=== PATIENT | female | born 1995 | race African-American/Black ===

== ENCOUNTER → 2016-06-23 | Outpatient (CLI) | payer OTHER ==
[~2016-06-23] MED LIST: ALBUAER INH; AZIT250T PO; VALA1TAB2 PO
== END | disposition home or self-care (01) ==
LOC: C.PAPS 11:38
PROVIDERS: ATTEND Physician Assistant
DX: Z12.4 Encounter for screening for malignant neoplasm of cervix (principal)

== ENCOUNTER → 2016-06-23 | Outpatient (CLI) | payer OTHER ==
[2016-06-25 01:09] LABS: CHLAMYDIA TRACH RNA*** DETECTED (NOT DETECTED); GC (NEIS GONORRHOEAE)RNA** NOT DETECTED (NOT DETECTED)
== END | disposition home or self-care (01) ==
LOC: C.LABSPEC 10:52
PROVIDERS: ATTEND Obstetrics & Gynecology
DX: Z12.4 Encounter for screening for malignant neoplasm of cervix (principal)

== ENCOUNTER → 2016-10-25 | Outpatient (CLI) | payer OTHER ==
[2016-10-27 16:23] LABS: CHLAMYDIA TRACH RNA*** NOT DETECTED (NOT DETECTED); GC (NEIS GONORRHOEAE)RNA** NOT DETECTED (NOT DETECTED)
== END | disposition home or self-care (01) ==
LOC: C.LABSPEC 15:48
PROVIDERS: ATTEND Physician Assistant
DX: A74.9 Chlamydial infection, unspecified (principal)

== ENCOUNTER 2016-11-01 00:49 | Emergency (ER) | payer OTHER ==
[~2016-11-01] VITALS: Ht 165.1 cm; Wt 78.8 kg
[~2016-11-01 00:49] MED LIST changes: -VALA1TAB2 PO
[2016-11-01 00:54] VITALS: TEMP 36.7; Ht 165.1 cm; Wt 78.8 kg
--- NOTE | 2016-11-01 01:13 | EMERGENCY ROOM VISIT NOTE ---
History Report prepared by Scribe: Sindy Mina Under the Supervision of: Dr. Dmitry Orellana D.O. First contact with patient: 01:06 Chief Complaint: OTHER COMPLAINT Stated Complaint: YELLOW BUMP ON TONGUE,PAINFUL,DIFFICULT TO SWALLOW History of Present Illness The patient is a 21 year old female who presents to the Emergency Room with complaints of persistent tongue pain for the past 2 to 3 days. She rates her discomfort as a 5/10. She states there appears to be a yellowish bump on her tongue but denies any lesions on her lips or other parts of her body. 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 Swallowing has become increasingly painful for her, which is why she decided to come to the ED this morning. Source of History: patient Onset: 2 to 3 days [employer] Position: tongue Symptom Intensity: 5/10 Timing: other (persistent) Modifying Factors (Worsening): other (swallowing) Review of Systems See HPI for pertinent positives & negatives. A total of 10 systems reviewed and were otherwise negative. Past Medical & Surgical Medical Problems: (1) No chronic problems Surgical Problems: (1) H/O wisdom tooth extraction Family History Hypertension Kidney disease Social History Smoking Status: Never Smoker Alcohol Use: occasionally Drug Use: none Marital Status: single Housing Status: lives with roommate Occupation Status: [employer] student Current/Historical Medications Scheduled Valacyclovir Hcl (Valtrex), 1,000 MG PO BID Allergies Coded Allergies: No Known Allergies (Unverified , 11/01/16) Physical Exam Vital Signs Date Time Temp Pulse Resp B/P (MAP) Pulse Ox O2 Delivery O2 Flow Rate FiO2 11/01/16 02:34 80 18 115/85 98 11/01/16 00:54 36.7 86 16 126/85 96 Room Air Physical Exam GENERAL: Patient is awake, alert, in no acute distress, patient is resting comfortably and showing no signs of anxiety EYES: The conjunctivae are clear. The pupils are round and reactive. EARS, NOSE, MOUTH AND THROAT: The nose is without any evidence of any deformity. Ulceration noted on the lateral aspect of the right side of the tongue, no significant swelling appreciated. Mucous membranes are moist, tongue is midline NECK: The neck is nontender and supple. RESPIRATORY: Normal respiratory effort is noted there is no evidence of wheezing rhonchi or rales CARDIOVASCULAR: Regular rate and rhythm noted there no murmurs rubs or gallops normal S1 normal S2 GASTROINTESTINAL: The abdomen is soft. Bowel sounds are present in all quadrants. Abdomen is nontender PELVIS: The Pelvis is stable. No tenderness to palpation is noted. BACK: No midline tenderness or or step-off noted range of motion in flexion extension as well as rotation no signs of muscle spasm noted MUSCULOSKELETAL/EXTREMITIES: There is no evidence of gross deformity full range of motion is noted in the hips and shoulders SKIN: There is no obvious evidence of any rash. There are no petechiae, pallor or cyanosis noted. NEUROLOGIC: Patient is awake alert and oriented x3 Medical Decision & Procedures Laboratory Results Test 11/01/16 01:10 Laboratory results per my review. Medications Administered Medications (Trade) Dose Ordered Sig/Marylu Route Start Time Stop Time Status Last Admin Dose Admin Valacyclovir HCl (Valtrex Tab) 1,000 mg NOW ONCE PO 11/01/16 01:30 11/01/16 01:31 DC 11/01/16 01:25 1,000 MG ED Course 0107: The patient was evaluated in room C8. A complete history and physical examination were performed. 0130: Valtrex 1000 mg PO. 0149: I reevaluated the patient. She is feeling better. I discussed her results and discharge instructions and she verbalized complete understanding and agreement. Medical Decision Prior records/ancillary studies reviewed. Triage Nursing notes reviewed. The patient's history was concerning for a rash. Differential diagnosis: Etiologies such as contact dermatitis, viral exanthem, urticaria, allergic reaction, Benson-Randal syndrome, toxic epidermal necrolysis, erythema multiforme, cellulitis, scabies, HSV, varicella, zoster, eczema, staph scalded skin syndrome, fungal infection, as well as others were entertained. The patient is a 21-year-old female who presented to emergency department for an evaluation of a ulceration on the right side of her tongue. This appeared to be consistent with a cold sore. Cultures were obtained and the patient was started on antiviral medications. She was encouraged to follow-up with her primary care physician this week for further evaluation but return to emergency department if symptoms worsen or if need arises. Blood Pressure Screening Patient's blood pressure: Normal blood pressure Blood pressure disposition: Did not require urgent referral Impression Primary Impression: Oral ulceration Scribe Attestation The scribe's documentation has been prepared under my direction and personally reviewed by me in its entirety. I confirm that the note above accurately reflects all work, treatment, procedures, and medical decision making performed by me. Departure Information Dispostion Home / Self-Care Prescriptions Valacyclovir Hcl (VALTREX) 1 Gm Tab 1000 MG PO BID, #14 TAB Prov: Dmitry Orellana, DO 11/01/16 Referrals No Doctor, Assigned (PCP) Patient Instructions Cold Sore, My [facility] Additional Instructions Continue all medications as prescribed. Follow-up with your family for reevaluation this week. Drink plenty clear liquids.
[2016-11-01] MEDS ORDERED: VALA1TAB2 PO (01:21)
[2016-11-01 02:34] VITALS: BP 115/85; PULSE 80; O2SAT 98
[2016-11-03 14:43] LABS: HERPES SIMPLEX CULT SOURCE OTHER-R SIDE OF TONG; HERPES SIMPLEX VIRUS CULT ISOLATED (NOT ISOLATED)
[2016-11-04 13:39] LABS: HSVTYPE1REFLEX ONLY!DON'T ORDR ISOLATED (NOT ISOLATED); HSVTYPE2REFLEX ONLY!DON'T ORDR NOT ISOLATED (NOT ISOLATED)
== END 2016-11-01 02:25 | disposition home or self-care (01) ==
LOC: C.EDB 00:50
DX: K12.1 Other forms of stomatitis (principal); Z82.49 Family history of ischemic heart disease and other diseases of the circulatory system

== ENCOUNTER → 2016-11-09 | Outpatient (CLI) | payer OTHER ==
[~2016-11-09] MED LIST changes: -ALBUAER INH; -AZIT250T PO; +VALA1TAB2 PO
[2016-11-11 11:47] LABS: MUMPS IgG VALUE >300.00 AU/ML
== END | disposition home or self-care (01) ==
LOC: C.LABBC 11:09
PROVIDERS: ATTEND Physician Assistant
DX: Z00.00 Encounter for general adult medical examination without abnormal findings (principal)

== ENCOUNTER → 2017-08-16 | Outpatient (CLI) | payer OTHER | END | disposition home or self-care (01) | LOC: C.LABBC 09:27 | PROVIDERS: ATTEND Physician Assistant Medical | DX: Z00.00 Encounter for general adult medical examination without abnormal findings (principal); N89.8 Other specified noninflammatory disorders of vagina ==